=== PATIENT | male | born 1990 | race Caucasian/White ===

== ENCOUNTER 2018-04-17 08:04 | Emergency (ER) | payer BC, OTHER ==
[2018-04-17] MEDS ORDERED: Diazepam 5 MG TAB ONE (08:20)
--- NOTE | 2018-04-17 08:40 | RAD ---
PA AND LATERAL VIEWS CHEST: HISTORY: Back pain. Difficulty breathing. FINDINGS: Comparison is made with the exam of 01/14/2014. The heart size is normal. The lungs are expanded without focal areas of consolidation, pneumothorax, or pleural effusions. No acute osseous abnormalities are seen. IMPRESSION: No radiographic evidence of acute cardiopulmonary process. POS: [facility]
== END 2018-04-17 08:48 | disposition home or self-care (01) ==
LOC: ERS 08:04
DX: S29.012A Strain of muscle and tendon of back wall of thorax, initial encounter (principal); F17.210 Nicotine dependence, cigarettes, uncomplicated; X50.9XXA Other and unspecified overexertion or strenuous movements or postures, initial encounter
CPT/HCPCS: 71046